=== PATIENT | male | born 1965 | race African-American/Black ===

== ENCOUNTER 2016-07-20 17:48 | Emergency (ER) | payer OTHER ==
--- NOTE | 2016-07-20 20:35 | ERRECORD ---
[facility] EMERGENCY RECORD HPI URI (19:45 DHAM) CHIEF COMPLAINT: Patient presents for evaluation of nasal congestion, Patient presents for evaluation of fever and body aches. HISTORIAN: History provided by patient. LOCATION: No localizing symptoms. QUALITY: Pain is dull in nature, described as aching. SEVERITY: Current severity of pain rated as 4/10. TIME COURSE: Gradual onset of symptoms, 60, hours prior to arrival, There has been no change in the patient's symptoms over time, are intermittent. ASSOCIATED WITH: No associated chest pain, Associated with chills, Associated with fever, subjective, for 2 days, intermittent, Associated with headache, No associated neck pain, No associated shortness of breath. EXACERBATED BY: Patient's condition exacerbated by nothing. RELIEVED BY: Patient's condition relieved by over the counter medications, motrin taken 2 hours ago. ROS (19:45 DHAM) CONSTITUTIONAL: Historian reports chills, reports fever. EYES: Historian denies eye pain, denies eye redness, denies eye discharge. ENT: Historian reports rhinorrhea, denies sore throat. CARDIOVASCULAR: Historian denies chest pain, reports diaphoresis, denies edema, denies syncope, denies palpitations. RESPIRATORY: Historian denies cough, denies shortness of breath, denies sputum, denies wheezing. GI: Historian denies abdominal pain, denies constipation, denies diarrhea, denies nausea, denies vomiting. MUSCULOSKELETAL: Historian reports arthralgias, denies injury, denies joint redness, reports myalgias, denies neck pain. SKIN: Historian denies rash, denies skin changes, denies skin lesions. NEUROLOGIC: Historian reports dizziness, denies focal weakness, denies gait changes, denies headache, denies mental status changes, denies paresthesias. HEMO/LYMPHATIC: Historian denies abnormal blood clotting, denies easy bruising. ALLERGIC/IMMUNOLOGIC: Historian denies frequent infections, denies hives. PAST MEDICAL HISTORY MEDICAL HISTORY: Flu vaccine not up to date, Tetanus immunization up to date, Date of immunization: 2 YR, Pneumococcal vaccine not up to date, Flu vaccine up to date, Tetanus immunization up to date, Pneumococcal vaccine not up to date, Past medical history includes gastrointestinal disease, gastroesophageal reflux disease, Notes: VERIFIED 04/19/14.VERIFIED &a-1R&a+25V*p+0X*[id number]*c202B*c15G*c2P*p-0X&a-25V&a+1R Name: Bahman Rinaldi : 1965 M51 MedRec: [id number] AcctNum: [id number] Prepared: Sat Jul 21, 2016 03:03 by Interface Page 1 of 3 pMD [facility] EMERGENCY RECORD 07/20/16. (18:04 EROG) MALE SURGICAL HISTORY: RIGHT TKR 09/2012. RIGHT KNEE REPLACEMENT. VERIFIED 04/19/14. VERIFIED 07/20/16. (18:04 EROG) PSYCHIATRIC HISTORY: No previous psychiatric history. No previous psychiatric history. VERIFIED 04/19/14. VERIFIED 07/20/16. (18:04 EROG) SOCIAL HISTORY: Patient drinks socially, every week, Patient currently uses drugs, abuses marijuana, Patient currently uses tobacco, smokes cigarettes. VERIFIED 07/20/16. (18:04 EROG) FAMILY HISTORY: Family history includes coronary artery disease, Family history includes diabetes, Family history includes hypertension. VERIFIED 07/20/16. (18:04 EROG) NOTES: HAVE EXAMINED AND AGREE WITH PMHX, SOCIAL HX AND PAST FAMILY HX as noted in nursing docuentation. (18:25 DHAM) KNOWN ALLERGIES No Known Allergies (Unconfirmed) No Known Drug Allergies CURRENT MEDICATIONS (18:00 EROG) None VITAL SIGNS VITAL SIGNS: BP: 130/84, Pulse: 82, Resp: 18, Temp: 99.2 (Tympanic), Pain: 0, O2 sat: 100 on Room Air, Time: 07/20/2016 17:55. (17:55 EROG) BP: 127/78, Pulse: 81, Resp: 18, Temp: 98.0, Pain: 0, O2 sat: 100 on RA, Time: 07/20/2016 20:20. (20:20 EROG) PHYSICAL EXAM (19:45 DHAM) CONSTITUTIONAL: Vital signs reviewed, Patient afebrile, Pulse normal, Blood pressure normal, Respiratory rate normal, Patient appears, uncomfortable, Patient appears pain free, Patient alert and oriented to person, place and time. HEAD: Head exam included findings of head atraumatic, normocephalic. EYES: Eye exam included findings of eyelids normal to inspection, Pupils equally round and reactive to light, Extraocular muscles intact, Conjunctiva normal. ENT: ENT exam normal, Ear exam normal, external ear normal, tympanic membranes normal, Nose exam normal, no bleeding from nares, Pharynx exam normal, Uvula exam normal, Tonsil exam normal, not enlarged, no exudates, Mouth exam normal, mucous membranes moist. NECK: Neck exam included findings of normal range of motion, Trachea midline, no meningeal signs, no cervical adenopathy, no carotid bruits, no jugular venous distention, no cervical adenopathy. RESPIRATORY CHEST: Respiratory exam included findings of no respiratory distress, Breath sounds clear, No wheezing, No rales, Breath sounds not diminished. &a-1R&a+25V*p+0X*s1687U*c202B*c15G*c2P*p-0X&a-25V&a+1R Name: Bahman Rinaldi : 1965 M51 MedRec: [id number] AcctNum: [id number] Prepared: Sat Jul 21, 2016 03:03 by Interface Page 2 of 3 pMD [facility] EMERGENCY RECORD CARDIOVASCULAR: Cardiovascular exam included findings of heart rate regular rate and rhythm, Heart sounds normal, Point of maximal impulse normal, Pedal pulses normal. ABDOMEN MALE: Abdominal exam included findings of abdomen nontender, Bowel sounds normal, Liver normal, Spleen normal, no distension, no peritoneal signs. BACK: Back exam normal. UPPER EXTREMITY: Upper extremity exam normal, Motor strength normal, Sensation intact. LOWER EXTREMITY: Lower extremity exam normal. NEURO: Neuro exam findings include patient oriented to person, place and time, Speech normal, Memory normal, Cranial nerves intact, Deep tendon reflexes normal, no focal motor deficits, no focal sensory deficits. SKIN: Skin exam included findings of skin warm, and, moist, no rash. LYMPHATIC: Lymphatic exam normal, Lymphatic exam included findings of cervical nodes normal. PSYCHIATRIC: Psychiatric exam included findings of patient oriented to person place and time, Normal affect. PROBLEM LIST No recorded problems DIAGNOSIS (19:47 DHAM) FINAL: PRIMARY: upper respiratory infection. PRESCRIPTION No recorded prescriptions DISPOSITION PATIENT: Disposition Type: Discharge, Disposition: *Discharge Home. (19:47 DHAM) Patient left the department. (20:24 EROG) Mariscal: DHAM=MD Jose Ramon, Lul EROG=KOKO Drake, Nathan &a-1R&a+25V*p+0X*[id number]*c202B*c15G*c2P*p-0X&a-25V&a+1R Name: Bahman Rinaldi : 1965 M51 MedRec: [id number] AcctNum: [id number] Prepared: Moshe Jul 21, 2016 03:03 by Interface Page 3 of 3 pMD MTDD
--- NOTE | 2016-07-20 20:38 | PICIS ---
[facility] EMERGENCY RECORD TRIAGE (SatJul 20, 2016 17:59 EROG) TRIAGE NOTES: COUGH, CONGESTION, FEVER, SORE THROAT. (SatJul 20, 2016 17:59 EROG) PATIENT: NAME: Bahman Rinaldi, AGE: 51, GENDER: male, : Sun 1965, TIME OF GREET: SatJul 20, 2016 17:49, PREFERRED LANGUAGE: Croatian, ETHNICITY: Not or , FALL RISK: NO, ECODE BILLING MAP: [facility], SSN: [id number], Zip Code: [address], KG WEIGHT: 72.57, HEIGHT/LENGTH: 177.80cm, BMI: 22.95, PHONE: , , , PERSON ID: [id number], PCP: DR. CARRENO. (SatJul 20, 2016 17:59 EROG) COMPLAINT: FEVER/COUGH/CONGESTION. (SatJul 20, 2016 17:59 EROG) ADMISSION: URGENCY: 4 Non Urgent, ADMISSION SOURCE: Home, TRANSPORT: CAR, BED: TRIAGE. (SatJul 20, 2016 17:59 EROG) ASSESSMENT: Assessment: COUGH, CONGESTION,. SORE THROAT, ACHING ALL OVER, Symptoms began 3 days ago. (18:04 EROG) SIRS SCORING: Heart Rate 55-109 (0), Temp range 96.8-101.1 (0), respiratory rate 12-24 (0), Mental Status altered: no (0), Infection or Suspected Infection: No. (18:04 EROG) PROVIDERS: TRIAGE NURSE: Nathan Capone RN. (SatJul 20, 2016 17:59 EROG) VITAL SIGNS: BP 130/84, Pulse 82, Resp 18, Temp 99.2, (Tympanic), Pain 0, O2 Sat 100, on Room Air, Time 07/20/2016 17:55. (17:55 EROG) KNOWN ALLERGIES No Known Allergies (Unconfirmed) No Known Drug Allergies CURRENT MEDICATIONS (18:00 EROG) None VITAL SIGNS VITAL SIGNS: BP: 130/84, Pulse: 82, Resp: 18, Temp: 99.2 (Tympanic), Pain: 0, O2 sat: 100 on Room Air, Time: 07/20/2016 17:55. (17:55 EROG) BP: 127/78, Pulse: 81, Resp: 18, Temp: 98.0, Pain: 0, O2 sat: 100 on RA, Time: 07/20/2016 20:20. (20:20 EROG) NURSING PROCEDURE: DISCHARGE NOTE DISCHARGE: Patient discharged to home, ambulating without assistance, family driving, accompanied by //partner, Summary of Care printed/ provided, Patient requested and was provided an electronic copy of Discharge Instructions, Transition record given to patient, Discharge instructions given to patient, Simple or moderate discharge teaching performed, by Mena CAPONE RN, Above person(s) verbalized understanding of discharge instructions and follow-up care. (20:20 EROG) BELONGINGS: Belongings remain with patient, Valuables remain with patient. (20:20 EROG) NOTES: Notes: PATIENT REMAINS STABLE WITH NO CHANGES SINCE &a-1R&a+25V*p+0X*h3860V*c202B*c15G*c2P*p-0X&a-25V&a+1R Name: Bahman Rinaldi : 1965 M51 MedRec: [id number] AcctNum: [id number] Prepared: Sat Jul 21, 2016 03:10 by Interface Page 1 of 6 pMD [facility] EMERGENCY RECORD ARRIVAL. HERE TO DRIVE HIM HOME. (20:23 EROG) VITAL SIGNS: BP: 127, / 78, Pulse: 81, Resp: 18, Temp: 98.0, Pain: 0, O2 sat: 100, on: RA, Time: 2014. (20:20 EROG) NURSING PROCEDURE: NURSE NOTES (18:38 EROG) NURSES NOTES: Notes: FLU SWAB COLLECTED AND TAKEN TO LAB BY DR. SCHMIDT. ORDER DETAILS Order Name: Influenza A&B Ag Screen, Status: Active, Time: 18:30 07/20/2016, User: ZEV, - Ordered for: MD Schmidt Darren, - Entered by: MD Schmidt Darren - Fri Jul 20, 2016 18:30, - Quantity: 1. HPI URI (19:45 DHAM) CHIEF COMPLAINT: Patient presents for evaluation of nasal congestion, Patient presents for evaluation of fever and body aches. HISTORIAN: History provided by patient. LOCATION: No localizing symptoms. QUALITY: Pain is dull in nature, described as aching. SEVERITY: Current severity of pain rated as 4/10. TIME COURSE: Gradual onset of symptoms, 60, hours prior to arrival, There has been no change in the patient's symptoms over time, are intermittent. ASSOCIATED WITH: No associated chest pain, Associated with chills, Associated with fever, subjective, for 2 days, intermittent, Associated with headache, No associated neck pain, No associated shortness of breath. EXACERBATED BY: Patient's condition exacerbated by nothing. RELIEVED BY: Patient's condition relieved by over the counter medications, motrin taken 2 hours ago. ROS (19:45 DHAM) CONSTITUTIONAL: Historian reports chills, reports fever. EYES: Historian denies eye pain, denies eye redness, denies eye discharge. ENT: Historian reports rhinorrhea, denies sore throat. CARDIOVASCULAR: Historian denies chest pain, reports diaphoresis, denies edema, denies syncope, denies palpitations. RESPIRATORY: Historian denies cough, denies shortness of breath, denies sputum, denies wheezing. GI: Historian denies abdominal pain, denies constipation, denies diarrhea, denies nausea, denies vomiting. MUSCULOSKELETAL: Historian reports arthralgias, denies injury, denies joint redness, reports myalgias, denies neck pain. SKIN: Historian denies rash, denies skin changes, denies skin &a-1R&a+25V*p+0X*d9890G*c202B*c15G*c2P*p-0X&a-25V&a+1R Name: Bahman Rinaldi : 1965 11 MedRec: [id number] AcctNum: [id number] Prepared: Sat Jul 21, 2016 03:10 by Interface Page 2 of 6 pMD [facility] EMERGENCY RECORD lesions. NEUROLOGIC: Historian reports dizziness, denies focal weakness, denies gait changes, denies headache, denies mental status changes, denies paresthesias. HEMO/LYMPHATIC: Historian denies abnormal blood clotting, denies easy bruising. ALLERGIC/IMMUNOLOGIC: Historian denies frequent infections, denies hives. PAST MEDICAL HISTORY MEDICAL HISTORY: Flu vaccine not up to date, Tetanus immunization up to date, Date of immunization: 2 YR, Pneumococcal vaccine not up to date, Flu vaccine up to date, Tetanus immunization up to date, Pneumococcal vaccine not up to date, Past medical history includes gastrointestinal disease, gastroesophageal reflux disease, Notes: VERIFIED 04/19/14.VERIFIED 07/20/16. (18:04 EROG) MALE SURGICAL HISTORY: RIGHT TKR 09/2012. RIGHT KNEE REPLACEMENT. VERIFIED 04/19/14. VERIFIED 07/20/16. (18:04 EROG) PSYCHIATRIC HISTORY: No previous psychiatric history. No previous psychiatric history. VERIFIED 04/19/14. VERIFIED 07/20/16. (18:04 EROG) SOCIAL HISTORY: Patient drinks socially, every week, Patient currently uses drugs, abuses marijuana, Patient currently uses tobacco, smokes cigarettes. VERIFIED 07/20/16. (18:04 EROG) FAMILY HISTORY: Family history includes coronary artery disease, Family history includes diabetes, Family history includes hypertension. VERIFIED 07/20/16. (18:04 EROG) NOTES: HAVE EXAMINED AND AGREE WITH PMHX, SOCIAL HX AND PAST FAMILY HX as noted in nursing docuentation. (18:25 DHAM) PHYSICAL EXAM (19:45 DHAM) CONSTITUTIONAL: Vital signs reviewed, Patient afebrile, Pulse normal, Blood pressure normal, Respiratory rate normal, Patient appears, uncomfortable, Patient appears pain free, Patient alert and oriented to person, place and time. HEAD: Head exam included findings of head atraumatic, normocephalic. EYES: Eye exam included findings of eyelids normal to inspection, Pupils equally round and reactive to light, Extraocular muscles intact, Conjunctiva normal. ENT: ENT exam normal, Ear exam normal, external ear normal, tympanic membranes normal, Nose exam normal, no bleeding from nares, Pharynx exam normal, Uvula exam normal, Tonsil exam normal, not enlarged, no exudates, Mouth exam normal, mucous membranes moist. NECK: Neck exam included findings of normal range of motion, Trachea midline, no meningeal signs, no cervical adenopathy, no carotid bruits, no jugular venous distention, no cervical adenopathy. RESPIRATORY CHEST: Respiratory exam included findings of no &a-1R&a+25V*p+0X*[id number]*c202B*c15G*c2P*p-0X&a-25V&a+1R Name: Bahman Rinaldi : 1965 M51 [id number] [id number] Prepared: Moshe Jul 21, 2016 03:10 by Interface Page 3 of 6 pMD [facility] EMERGENCY RECORD respiratory distress, Breath sounds clear, No wheezing, No rales, Breath sounds not diminished. CARDIOVASCULAR: Cardiovascular exam included findings of heart rate regular rate and rhythm, Heart sounds normal, Point of maximal impulse normal, Pedal pulses normal. ABDOMEN MALE: Abdominal exam included findings of abdomen nontender, Bowel sounds normal, Liver normal, Spleen normal, no distension, no peritoneal signs. BACK: Back exam normal. UPPER EXTREMITY: Upper extremity exam normal, Motor strength normal, Sensation intact. LOWER EXTREMITY: Lower extremity exam normal. NEURO: Neuro exam findings include patient oriented to person, place and time, Speech normal, Memory normal, Cranial nerves intact, Deep tendon reflexes normal, no focal motor deficits, no focal sensory deficits. SKIN: Skin exam included findings of skin warm, and, moist, no rash. LYMPHATIC: Lymphatic exam normal, Lymphatic exam included findings of cervical nodes normal. PSYCHIATRIC: Psychiatric exam included findings of patient oriented to person place and time, Normal affect. LAB INTERPRETATION (19:47 DHAM) INTERPRETATION: Influenza negative. EVENTS TRANSFER: Triage to Emergency Triage. (SatJul 20, 2016 17:59 EROG) Emergency Triage to Main ED -H01. (18:04 EROG) Removed from Emergency Main ED -H01. (20:24 EROG) O2SAT INTERPRETATION (18:25 DHAM) O2SAT: Single pulse oximetry, Oxygen saturation 100%, on room air, Oxygen saturation interpretation: Normal, No intervention required. PROBLEM LIST No recorded problems DIAGNOSIS (19:47 DHAM) FINAL: PRIMARY: upper respiratory infection. DISPOSITION PATIENT: Disposition Type: Discharge, Disposition: *Discharge Home. (19:47 DHAM) Patient left the department. (20:24 EROG) INSTRUCTION (19:49 DHAM) DISCHARGE: UPPER RESP INFECTION NO ANTIBIOTIC TREATMENT ADULT. &a-1R&a+25V*p+0X*q6408D*c202B*c15G*c2P*p-0X&a-25V&a+1R Name: Bahman Rinaldi : 1965 M51 MedRec: [id number] AcctNum: [id number] Prepared: Sat Jul 21, 2016 03:10 by Interface Page 4 of 6 pMD [facility] EMERGENCY RECORD SPECIAL: Aleve 2 twice a day for aches and fevers sudafed during the day for congestion and afrin 12 hour nasal spray at night for congestion. return if fevers haven't resolved after 4 days, shortness of breath or for any new concerns. PRESCRIPTION No recorded prescriptions IMAGING (20:19 EROG) *DISCHARGE INSTRUCTIONS RECEIPT: Image captured from scanner. *SUPPLY CHARGE SHEET: Image captured from scanner. ADMIN DIGITAL SIGNATURE: KOKO Capone, Nathan. (20:23 EROG) MD Schmidt Darren. ([facility] Jul 21, 2016 03:02 DHA) RESULTS (19:45 DHA) MICROBIOLOGY: Influenza A&B Ag Screen: [id number] Collection DT: SatJul 20, 2016 18:43, See comment below , @ ER ROOM#: [id number] Source: Nasal swab Spec Desc: , Influenza A Antigen: NEGATIVE for the , presence of , INFLUENZA A Antigen , Influenza B Antigen: NEGATIVE for the , presence of , INFLUENZA B Antigen , The rapid Flu A&B test can distinguish between influenza A , Influenza A&B Ag Screen See comment below , and B viruses, but it does not differentiate influenza , Influenza A&B Ag Screen See comment below , subtypes. , Influenza A&B Ag Screen See comment below , Influenza A&B Ag Screen See comment below , Influenza A&B Ag Screen See comment below , Influenza A&B Ag Screen See comment below , characteristics of this device with human specimens infected , Influenza A&B Ag Screen See comment below , with the 2008 H1N1 influenza virus have not been , Influenza A&B Ag Screen See comment below , established. For example: this test cannot distinguish , Influenza A&B Ag Screen See comment below , influenza infections caused by novel H1N1 influenza A , Influenza A&B Ag Screen See comment below , viruses versus seasonal influenza A viruses. , Influenza A&B Ag Screen See comment below , , Influenza A&B Ag Screen See comment below , A negative result does not exclude influenza virus , Influenza A&B Ag Screen See comment below , infection; therefore, if &a-1R&a+25V*p+0X*o1286P*c202B*c15G*c2P*p-0X&a-25V&a+1R Name: Bahman Rinaldi : 1965 M51 MedRec: [id number] AcctNum: [id number] Prepared: Moshe Jul 21, 2016 03:10 by Interface Page 5 of 6 pMD [facility] EMERGENCY RECORD more conclusive testing is desired, , Influenza A&B Ag Screen See comment below , follow up confirmatory testing is warranted., Influenza A&B Ag Screen See comment below . Mariscal: PAUL=MD Jose Ramon, Lul DELUCA=KOKO Capone, Nathan &a-1R&a+25V*p+0X*a1797S*c202B*c15G*c2P*p-0X&a-25V&a+1R Name: Bahman Rinaldi : 1965 M51 MedRec: [id number] AcctNum: [id number] Prepared: Moshe Jul 21, 2016 03:10 by Interface Page 6 of 6 pMD MTDD
== END 2016-07-20 20:13 | disposition home or self-care (01) ==
LOC: MADERS 17:48
DX: J06.9 Acute upper respiratory infection, unspecified (principal); K21.9 Gastro-esophageal reflux disease without esophagitis; F17.210 Nicotine dependence, cigarettes, uncomplicated
CPT/HCPCS: 99283

== ENCOUNTER 2017-06-02 10:23 | Emergency (ER) | payer OTHER ==
[2017-06-02] MEDS ORDERED: Nitroglycerin 2% Ointment 1 INCH/1 GM Packet ONE (10:35)
[2017-06-02 11:17] LABS: ALT (SGPT) 23 U/L (8-55); AST (SGOT) 27 U/L (5-34); Albumin 3.9 g/dL (3.5-5.0); Alkaline Phosphatase 98 U/L (40-150); Anion Gap 16 mmol/L (10-20); BUN (Urea Nitrogen) 15 mg/dL (8.9-20.6); Bilirubin, Total 0.7 mg/dL (0.2-1.2); Calc. Creatinine Clearance 0 mL/min (70-130); Calcium 8.7 mg/dL (7.8-10.44); Carbon Dioxide 19 mmol/L (22-29); Chloride 107 mmol/L (98-107); Estimated GFR-MDRD Greater than 90; Globulin 2.9 g/dL (2.4-3.5); Glucose 94 mg/dL (70-105); Potassium 4.2 mmol/L (3.5-5.1); Protein, Total 6.8 g/dL (6.0-8.3); Sodium 138 mmol/L (136-145)
[2017-06-02 11:34] LABS: Prothrombin Time 13.1 SEC (12.0-14.7)
[2017-06-02 11:43] LABS: CKMB 7.5 ng/mL (0-6.6); Troponin I 0.014 ng/mL (< 0.028)
[2017-06-02] MEDS ORDERED: Enoxaparin Sodium 80 MG/0.8 ML SYRINGE ONE (11:45)
[2017-06-02 12:02] LABS: Eosinophils 6 % (0-10); Lymphocytes 11 % (21-51); MDiff Complete? YES; Mean Corpuscular HGB CONC 34.2 g/dL (32.0-36.0); Mean Corpuscular Hemoglobin 31.9 pg (27.0-31.0); Mean Corpuscular Volume 93.3 fl (80.0-94.0); Mean Platelet Volume 6.7 fL (7.4-10.4); Monocytes 11 % (0-10); Neutrophil 65 % (42-75); PLT Morphology Comment Appears Adequate; Platelet Count 193 thou/uL (130-400); RBC Distribution Width 11.8 % (11.5-14.5); RBC Morphology Normal; Reactive Lymphocytes 7 % (0-10); White Blood Cell (WBC) Count 5.2 thou/uL (4.8-10.8)
--- NOTE | 2017-06-02 13:09 | RAD ---
CHEST 1 VIEW: Date: 06/02/17 COMPARISON: 12/12/12. HISTORY: Chest pain. FINDINGS: Portable single view chest demonstrates normal cardiac silhouette. Lungs and pleural spaces are clear . No pneumothorax or osseous abnormalities. IMPRESSION: No acute cardiopulmonary process. POS: H
== END 2017-06-02 13:00 | disposition short-term general hospital (02) ==
LOC: MADERS 10:23
DX: I21.4 Non-ST elevation (NSTEMI) myocardial infarction (principal); K21.9 Gastro-esophageal reflux disease without esophagitis; F17.210 Nicotine dependence, cigarettes, uncomplicated
CPT/HCPCS: 71010; 80053; 82553; 83735; 83880; 84484; 85025; 85610; 85730; 93005; 96372; J1650

== ENCOUNTER 2020-03-07 18:51 | Emergency (ER) | payer OTHER ==
[2020-03-08 16:39] LABS: SARS-CoV-2 MS2 Positive; SARS-CoV-2 N Gene Negative; SARS-CoV-2 S Gene Negative; SARS-CoV-2 by NAA Not Detected (NotDetected); SARS-CoV-2 orf1ab Negative
== END 2020-03-07 19:34 | disposition home or self-care (01) ==
LOC: MADERS 18:51
DX: R50.9 Fever, unspecified (principal); R05 Cough; R51 Headache; M79.10 Myalgia, unspecified site; Z20.828 Contact with and (suspected) exposure to other viral communicable diseases; K21.9 Gastro-esophageal reflux disease without esophagitis; F17.210 Nicotine dependence, cigarettes, uncomplicated
CPT/HCPCS: 87635; 99284; U0003